=== PATIENT | male | born 2000 | race Caucasian/White ===

== ENCOUNTER 2022-03-14 02:01 | Emergency (ER) | payer OTHER ==
--- NOTE | 2022-03-14 02:08 | ED General ---
General Stated Complaint: HALLUCINATION History of Present Illness Date Seen by Provider: Mar 14, 2022 Time Seen by Provider: 02:07 (DEA HOPKINS MD) Allergies and Home Medications Allergies Coded Allergies: No Known Drug Allergies (Unverified , 03/14/22) Physical Exam Vital Signs Capillary Refill : (DEA HOPKINS MD) Height, Weight, BMI Height: '" Weight: lbs. oz. kg; BMI Method: (DAE HOPKINS MD) Progress/Results/Core Measures Suspected Sepsis SIRS Temperature: Pulse: Respiratory Rate: Blood Pressure / Mean: (DEA HOPKINS MD) Results/Orders Vital Signs/I&O Capillary Refill : (DEA HOPKINS MD) Departure Departure-Patient Inst. Referrals: UNKNOWN (PCP) Primary Care Physician DEA HOPKINS MD Mar 14, 2022 02:08 ,AugMar 15, 2022 08:05
== END 2022-03-14 02:15 | disposition left against medical advice (07) ==
LOC: ER 02:05
DX: R44.3 Hallucinations, unspecified (principal)